=== PATIENT | female | born 1995 | race Caucasian/White ===

== ENCOUNTER 2017-09-03 13:09 | Emergency (ER) | payer MEDICAID ==
[~2017-09-03] VITALS: Ht 162.6 cm; Wt 51.2 kg
[~2017-09-03 13:09] MED LIST: CEPH500C5 PO; CLOT15CR5 VG; COM10T PO; IBUP-1573 PO; PHEN-873 PO
[2017-09-03 13:32] LABS: COLOR,URINE Yellow (Yellow); GLUCOSE, URINE Negative (Neg); KETONES,URINE 15 mg/dl (Neg); LEUKOCYTE ESTERASE ,URINE Large (Neg); NITRITES, URINE Positive (Neg); OCCULT BLOOD,URINE Negative (Neg); PH,URINE 5.5 (4.8-8.0); PROTEIN,URINE Negative (Neg); UROBILINOGEN,URINE 0.2 E.U/dL (0.2-1.0)
[2017-09-03 13:38] LABS: UA COLLECTION TYPE NON-SPECIFIED
[2017-09-03 13:39] LABS: CLARITY,URINE SLIGHTLY CLOUDY (Clear)
[2017-09-03 13:41] LABS: BACTERIA,URINE 4+ /HPF (Neg); RBC,URINE NONE SEEN /HPF (0-2); SQUAMOUS EPITHELIAL CELL,UR FEW /LPF (FEW); WBC CLUMPS,URINE MODERATE /HPF (NEGATIVE); WBC,URINE 50-100 /HPF (0-4)
[2017-09-03 13:48] LABS: URINE HCG POSITIVE (NEG)
[2017-09-03] MEDS ORDERED: CEPH500C5 PO (14:21)
[2017-09-03 15:05] VITALS: BP 110/62
== END 2017-09-03 15:07 | disposition home or self-care (01) ==
LOC: ER 13:10
DX: O23.41 Unspecified infection of urinary tract in pregnancy, first trimester (principal); Z3A.01 Less than 8 weeks gestation of pregnancy; Z91.040 Latex allergy status; Z88.1 Allergy status to other antibiotic agents
CPT/HCPCS: 36415; 81001; 81025; 87077; 87088; 87186; 87210; 87491; 99284

== ENCOUNTER 2017-10-22 11:48 | Emergency (ER) | payer MEDICAID ==
[~2017-10-22] VITALS: Ht 160 cm; Wt 52.8 kg
[2017-10-22 12:37] LABS: URINE HCG POSITIVE (NEG)
[2017-10-22 12:49] LABS: CLARITY,URINE CLEAR (Clear); COLOR,URINE YELLOW (Yellow); GLUCOSE, URINE NEGATIVE (Neg); KETONES,URINE 15 mg/dl (Neg); LEUKOCYTE ESTERASE ,URINE NEGATIVE (Neg); NITRITES, URINE NEGATIVE (Neg); OCCULT BLOOD,URINE NEGATIVE (Neg); PROTEIN,URINE NEGATIVE (Neg); UROBILINOGEN,URINE 0.2 E.U/dL (0.2-1.0)
[2017-10-22 13:00] LABS: UA COLLECTION TYPE CLN CATCH MIDSTREAM
[2017-10-22 13:08] LABS: BASOPHILS # (AUTO) 0.1 X10'3 (0-0.2); BASOPHILS % (AUTO) 0.6 % (0-1); EOSINOPHILS # (AUTO) 0.2 X10'3 (0-0.9); EOSINOPHILS % (AUTO) 1.3 % (0-6); HEMATOCRIT 40.5 % (35.0-45.0); HEMOGLOBIN 14.1 g/dl (12.0-16.0); LYMPHOCYTES # (AUTO) 2.1 X10'3 (1.1-4.8); LYMPHOCYTES % (AUTO) 18.1 % (21-51); MEAN CORPUSCULAR HEMOGLOBIN 30.8 PG (27.0-31.0); MEAN CORPUSCULAR HGB CONC 34.7 % (33.0-36.5); MEAN CORPUSCULAR VOLUME 88.6 FL (78-98); MEAN PLATELET VOLUME 7.4 FL (7.4-10.4); MONOCYTES # (AUTO) 0.5 X10'3 (0-0.9); PLATELET COUNT 286 X10'3 (140-440); RED BLOOD COUNT 4.58 X10'6 (4.20-5.60); RED CELL DISTRIBUTION WIDTH 13.5 % (11.5-14.5); WHITE BLOOD COUNT 11.9 X10'3 (4.5-11.0)
[2017-10-22 13:18] LABS: PROTHROMBIN TIME 10.3 SECONDS (9.0-12.0)
[2017-10-22 13:25] LABS: ALANINE AMINOTRANSFERASE 16 U/L (12-78); ALBUMIN 3.4 G/DL (3.4-5.0); ALBUMIN/GLOBULIN RATIO 0.9 (1.1-1.5); ALKALINE PHOSPHATASE 49 IU/L (46-116); ANION GAP 9 (8-16); ASPARTATE AMINO TRANSFERASE 11 U/L (10-37); BILIRUBIN,TOTAL 0.4 MG/DL (0.1-1.0); BLOOD UREA NITROGEN 6 MG/DL (7-18); CHLORIDE 103 MMOL/L (99-107); GLUCOSE 92 MG/DL (70-104); SODIUM 139 MMOL/L (135-145); TOTAL CARBON DIOXIDE 27.5 MMOL/L (24-32); TOTAL PROTEIN 7.3 G/DL (6.4-8.2); eGFR > 90 ML/MIN
[2017-10-22 15:26] VITALS: BP 139/80
== END 2017-10-22 15:26 | disposition home or self-care (01) ==
LOC: ER 11:49
DX: O99.511 Diseases of the respiratory system complicating pregnancy, first trimester (principal); J06.9 Acute upper respiratory infection, unspecified; Z3A.12 12 weeks gestation of pregnancy; Z88.0 Allergy status to penicillin; Z88.1 Allergy status to other antibiotic agents; Z91.040 Latex allergy status
CPT/HCPCS: 36415; 80053; 81003; 81025; 85025; 85610; 99284; 99285

== ENCOUNTER 2018-10-02 12:43 | Emergency (ER) | payer MEDICAID ==
[~2018-10-02] VITALS: Ht 157.5 cm; Wt 48.6 kg
[~2018-10-02 12:43] MED LIST changes: -CEPH500C5 PO; +PHEN-786 PO; -PHEN-873 PO
[2018-10-02 12:56] VITALS: BP 110/75
[2018-10-02 13:49] LABS: CLARITY,URINE CLEAR (Clear); COLOR,URINE YELLOW (Yellow); GLUCOSE, URINE NEGATIVE (Neg); KETONES,URINE NEGATIVE (Neg); LEUKOCYTE ESTERASE ,URINE NEGATIVE (Neg); NITRITES, URINE NEGATIVE (Neg); OCCULT BLOOD,URINE TRACE-INTACT (Neg); PH,URINE 6.5 (4.8-8.0); PROTEIN,URINE NEGATIVE (Neg); UROBILINOGEN,URINE 0.2 E.U/dL (0.2-1.0)
[2018-10-02 13:50] LABS: UA COLLECTION TYPE NON-SPECIFIED
[2018-10-02] MEDS ORDERED: IPRA30SP (13:55)
[2018-10-02 13:56] LABS: URINE HCG NEGATIVE (NEG)
[2018-10-02 13:57] LABS: MUCUS STRANDS MANY /LPF (Neg); SQUAMOUS EPITHELIAL CELL,UR FEW /LPF (FEW)
[2018-10-02 13:59] LABS: BACTERIA,URINE NONE SEEN /HPF (Neg); RBC,URINE 0-2 /HPF (0-2); WBC,URINE 0-4 /HPF (0-4)
== END 2018-10-02 14:14 | disposition home or self-care (01) ==
LOC: ER 12:44
DX: J32.9 Chronic sinusitis, unspecified (principal); Z88.0 Allergy status to penicillin; Z88.1 Allergy status to other antibiotic agents; Z79.899 Other long term (current) drug therapy; Z91.040 Latex allergy status
CPT/HCPCS: 81001; 81025; 99283

== ENCOUNTER 2018-11-03 09:29 | Emergency (ER) | payer MEDICAID ==
[~2018-11-03] VITALS: Ht 160 cm; Wt 49.1 kg
[~2018-11-03 09:29] MED LIST changes: +IPRA30SP
[2018-11-03 09:38] VITALS: BP 125/81
[2018-11-03 10:14] LABS: CLARITY,URINE CLEAR (Clear); COLOR,URINE YELLOW (Yellow); GLUCOSE, URINE NEGATIVE (Neg); KETONES,URINE NEGATIVE (Neg); LEUKOCYTE ESTERASE ,URINE NEGATIVE (Neg); NITRITES, URINE NEGATIVE (Neg); OCCULT BLOOD,URINE SMALL (Neg); PROTEIN,URINE NEGATIVE (Neg); UROBILINOGEN,URINE 0.2 E.U/dL (0.2-1.0)
[2018-11-03] MEDS ORDERED: ketorolac trometh inj. 60 MG/2 ML VIAL IM ONE (10:15)
[2018-11-03 10:17] LABS: UA COLLECTION TYPE CLN CATCH MIDSTREAM
[2018-11-03 10:23] LABS: SQUAMOUS EPITHELIAL CELL,UR MODERATE /LPF (FEW)
[2018-11-03 10:25] LABS: MUCUS STRANDS MODERATE /LPF (Neg)
[2018-11-03 10:32] LABS: RENAL CELLS, URINE FEW /HPF; TRANSITIONAL EPI CELLS,URINE FEW /HPF
[2018-11-03 10:37] LABS: URINE HCG NEGATIVE (NEG)
[2018-11-03 10:38] LABS: BASOPHILS % (AUTO) 0.9 % (0-1); EOSINOPHILS # (AUTO) 0.1 X10'3 (0-0.9); EOSINOPHILS % (AUTO) 1.5 % (0-6); HEMATOCRIT 39.8 % (35.0-45.0); HEMOGLOBIN 13.7 g/dl (12.0-16.0); LYMPHOCYTES # (AUTO) 1.9 X10'3 (1.1-4.8); LYMPHOCYTES % (AUTO) 35.8 % (21-51); MEAN CORPUSCULAR HEMOGLOBIN 30.8 PG (27.0-31.0); MEAN CORPUSCULAR HGB CONC 34.6 g/dL (33.0-36.5); MEAN PLATELET VOLUME 7.1 FL (7.4-10.4); MONOCYTES # (AUTO) 0.3 X10'3 (0-0.9); MONOCYTES % (AUTO) 6.5 % (2-12); NEUTROPHILS # (AUTO) 2.9 X10'3 (1.8-7.7); NEUTROPHILS % (AUTO) 55.3 % (42-75); PLATELET COUNT 283 X10'3 (140-440); RED BLOOD COUNT 4.47 X10'6 (4.20-5.60); RED CELL DISTRIBUTION WIDTH 13.6 % (11.5-14.5); WHITE BLOOD COUNT 5.2 X10'3 (4.5-11.0)
[2018-11-03 10:54] LABS: ALANINE AMINOTRANSFERASE 15 U/L (12-78); ALBUMIN 3.7 G/DL (3.4-5.0); ALKALINE PHOSPHATASE 96 IU/L (46-116); ANION GAP 9 (8-16); ASPARTATE AMINO TRANSFERASE 11 U/L (10-37); BILIRUBIN,TOTAL 0.3 MG/DL (0.1-1.0); BLOOD UREA NITROGEN 10 MG/DL (7-18); BUN/CREATININE RATIO 16.1 (6.6-38.0); CHLORIDE 108 MMOL/L (99-107); CREATININE 0.62 MG/DL (0.40-0.90); GLUCOSE 91 MG/DL (70-104); LIPASE 229 U/L (73-393); SODIUM 143 MMOL/L (135-145); TOTAL CARBON DIOXIDE 26.4 MMOL/L (24-32); TOTAL PROTEIN 7.3 G/DL (6.4-8.2); eGFR > 90 ML/MIN
[2018-11-03 11:45] LABS: BACTERIA,URINE FEW /HPF (Neg)
[2018-11-03] MEDS ORDERED: CEPH500C5 PO (12:53)
== END 2018-11-03 13:01 | disposition home or self-care (01) ==
LOC: ER 09:29
DX: N39.0 Urinary tract infection, site not specified (principal); N20.0 Calculus of kidney; Z88.0 Allergy status to penicillin; Z88.1 Allergy status to other antibiotic agents; Z91.040 Latex allergy status; Z79.899 Other long term (current) drug therapy
CPT/HCPCS: 36415; 74176; 80053; 81001; 81025; 83690; 85025; 87088; 96372; 99284; J1885

== ENCOUNTER 2018-12-21 07:56 | Emergency (ER) | payer MEDICAID ==
[~2018-12-21] VITALS: Ht 160 cm; Wt 47.7 kg
[~2018-12-21 07:56] MED LIST changes: +CEPH500C5 PO
[2018-12-21 08:00] VITALS: BP 110/79
[2018-12-21] MEDS ORDERED: CefTRIAXone 1000mg IM Kit (w/lidocaine diluent) IM ONE (08:25)
[2018-12-21] MEDS ORDERED: azithromycin 250mg tablet PO ONE (08:25)
[2018-12-21 08:56] LABS: CLARITY,URINE SLIGHTLY CLOUDY (Clear); COLOR,URINE YELLOW (Yellow); GLUCOSE, URINE NEGATIVE (Neg); KETONES,URINE NEGATIVE (Neg); LEUKOCYTE ESTERASE ,URINE TRACE (Neg); NITRITES, URINE NEGATIVE (Neg); OCCULT BLOOD,URINE SMALL (Neg); PH,URINE 5.5 (4.8-8.0); PROTEIN,URINE NEGATIVE (Neg); UA COLLECTION TYPE CLN CATCH MIDSTREAM; UROBILINOGEN,URINE 0.2 E.U/dL (0.2-1.0)
[2018-12-21 08:58] LABS: URINE HCG NEGATIVE (NEG)
[2018-12-21 09:06] LABS: MUCUS STRANDS MODERATE /LPF (Neg); SQUAMOUS EPITHELIAL CELL,UR MODERATE /LPF (FEW)
[2018-12-21 09:07] LABS: BACTERIA,URINE FEW /HPF (Neg)
[2018-12-21] MEDS ORDERED: NITR100C6 PO (09:15)
== END 2018-12-21 09:36 | disposition home or self-care (01) ==
LOC: ER 07:56
DX: N39.0 Urinary tract infection, site not specified (principal); Z88.0 Allergy status to penicillin; Z88.1 Allergy status to other antibiotic agents; Z91.040 Latex allergy status; Z79.2 Long term (current) use of antibiotics; Z79.899 Other long term (current) drug therapy
CPT/HCPCS: 36415; 81001; 81025; 87088; 87491; 87591; 96372; 99283; J0696

== ENCOUNTER 2019-04-12 09:07 | Emergency (ER) | payer MEDICAID ==
[~2019-04-12] VITALS: Ht 160 cm; Wt 48.6 kg
[~2019-04-12 09:07] MED LIST changes: +NITR100C6 PO
--- NOTE | 2019-04-12 09:38 | NUR ---
PATIETN C/O EAR PAIN, DRY COUGH, NASAL DRAINAGE GREEN
--- NOTE | 2019-04-12 09:44 | NUR ---
LUNGS CLEAR, NO WHEEZE
[2019-04-12 09:45] VITALS: BP 110/71
[2019-04-12] MEDS ORDERED: AZIT250T PO (09:45)
== END 2019-04-12 10:02 | disposition home or self-care (01) ==
LOC: ER 09:07
DX: J32.9 Chronic sinusitis, unspecified (principal); J02.9 Acute pharyngitis, unspecified; H92.01 Otalgia, right ear; Z88.0 Allergy status to penicillin; Z88.1 Allergy status to other antibiotic agents; Z91.040 Latex allergy status; Z79.899 Other long term (current) drug therapy
CPT/HCPCS: 99283

== ENCOUNTER 2020-01-22 07:05 | Emergency (ER) | payer MEDICAID ==
[~2020-01-22] VITALS: Ht 160 cm; Wt 52.0 kg
[~2020-01-22 07:05] MED LIST changes: +AZIT250T PO; -CEPH500C5 PO
[2020-01-22 07:07] VITALS: BP 122/88
[2020-01-22] MEDS ORDERED: CefTRIAXone 250MG inj IM ONE (07:25)
[2020-01-22] MEDS ORDERED: azithromycin 250mg tablet PO ONE (07:25)
[2020-01-22] MEDS ORDERED: phenazopyridine 100mg tablet PO ONE (07:25)
[2020-01-22] MEDS ORDERED: ondansetron 4mg rapidly disintigrating tab PO ONE (07:25)
[2020-01-22] MEDS ORDERED: CefTRIAXone 250MG IM Kit w/LIDOcaine IM ONE (07:30)
[2020-01-22 08:14] LABS: URINE HCG NEGATIVE (NEG)
[2020-01-22 08:20] LABS: CLARITY,URINE CLOUDY (Clear); COLOR,URINE YELLOW (Yellow); GLUCOSE, URINE NEGATIVE (Neg); KETONES,URINE NEGATIVE (Neg); LEUKOCYTE ESTERASE ,URINE MODERATE (Neg); NITRITES, URINE NEGATIVE (Neg); OCCULT BLOOD,URINE LARGE (Neg); PROTEIN,URINE 100 mg/dl (Neg)
[2020-01-22 08:32] LABS: UA COLLECTION TYPE VOIDED
[2020-01-22 08:33] LABS: BACTERIA,URINE 3+ /HPF (Neg); SQUAMOUS EPITHELIAL CELL,UR MANY /LPF (FEW); WBC,URINE TNTC /HPF (0-4)
[2020-01-22 08:34] LABS: TRANSITIONAL EPI CELLS,URINE FEW /HPF
[2020-01-22 08:35] LABS: MUCUS STRANDS FEW /LPF (Neg)
[2020-01-22] MEDS ORDERED: PHEN-786 PO (08:40)
[2020-01-22] MEDS ORDERED: BACDS PO (08:40)
== END 2020-01-22 08:54 | disposition home or self-care (01) ==
LOC: ER 07:05
DX: N39.0 Urinary tract infection, site not specified (principal); Z91.040 Latex allergy status; Z88.0 Allergy status to penicillin; Z88.8 Allergy status to other drugs, medicaments and biological substances; Z79.899 Other long term (current) drug therapy
CPT/HCPCS: 36415; 81001; 81025; 87491; 99284

== ENCOUNTER 2022-01-16 11:36 | Emergency (ER) | payer MEDICAID ==
[~2022-01-16] VITALS: Ht 160 cm; Wt 48.6 kg
[~2022-01-16 11:36] MED LIST changes: +CLOT15CR35 VG; -CLOT15CR5 VG
[2022-01-16 12:16] VITALS: BP 105/71
[2022-01-16 13:37] LABS: CLARITY,URINE SLIGHTLY CLOUDY (Clear); COLOR,URINE YELLOW (Yellow); GLUCOSE, URINE NEGATIVE (Neg); KETONES,URINE NEGATIVE (Neg); LEUKOCYTE ESTERASE ,URINE NEGATIVE (Neg); NITRITES, URINE POSITIVE (Neg); OCCULT BLOOD,URINE NEGATIVE (Neg); PROTEIN,URINE NEGATIVE (Neg); UROBILINOGEN,URINE 0.2 E.U/dL (0.2-1.0)
[2022-01-16 13:43] LABS: UA COLLECTION TYPE CLN CATCH MIDSTREAM
[2022-01-16] MEDS ORDERED: CEPH-585 PO (13:43)
[2022-01-16] MEDS ORDERED: FLUC200T8 PO (13:43)
[2022-01-16 13:44] LABS: BACTERIA,URINE 4+ /HPF (Neg); MUCUS STRANDS FEW /LPF (Neg); RBC,URINE 0-2 /HPF (0-2); SQUAMOUS EPITHELIAL CELL,UR NONE SEEN /LPF (FEW)
== END 2022-01-16 13:53 | disposition home or self-care (01) ==
LOC: ER 11:49
DX: N39.0 Urinary tract infection, site not specified (principal); Z91.040 Latex allergy status; Z88.0 Allergy status to penicillin; Z88.1 Allergy status to other antibiotic agents; Z79.899 Other long term (current) drug therapy
CPT/HCPCS: 81001; 87077; 87088; 87186; 99283

== ENCOUNTER 2022-11-16 11:46 | Emergency (ER) | payer MEDICAID ==
[~2022-11-16] VITALS: Ht 160 cm; Wt 54.1 kg
[~2022-11-16 11:46] MED LIST changes: +CEPH-585 PO
[2022-11-16 14:14] LABS: BASOPHILS % (AUTO) 0.4 % (0-1); EOSINOPHILS # (AUTO) 0.1 X10'3 (0-0.9); EOSINOPHILS % (AUTO) 1.6 % (0-6); HEMATOCRIT 39.1 % (35.0-45.0); HEMOGLOBIN 13.1 g/dl (12.0-16.0); LYMPHOCYTES # (AUTO) 2.1 X10'3 (1.1-4.8); LYMPHOCYTES % (AUTO) 23.6 % (21-51); MEAN CORPUSCULAR HEMOGLOBIN 30.8 PG (27.0-31.0); MEAN CORPUSCULAR HGB CONC 33.4 g/dL (33.0-36.5); MEAN CORPUSCULAR VOLUME 92.1 FL (78-98); MEAN PLATELET VOLUME 7.3 FL (7.4-10.4); MONOCYTES # (AUTO) 0.7 X10'3 (0-0.9); NEUTROPHILS # (AUTO) 5.9 X10'3 (1.8-7.7); NEUTROPHILS % (AUTO) 66.4 % (42-75); PLATELET COUNT 309 X10'3 (140-440); RED BLOOD COUNT 4.25 X10'6 (4.20-5.60); RED CELL DISTRIBUTION WIDTH 13.4 % (11.5-14.5); WHITE BLOOD COUNT 8.9 X10'3 (4.5-11.0)
[2022-11-16 14:17] VITALS: BP 114/68
[2022-11-16 14:48] LABS: ALANINE AMINOTRANSFERASE 12 U/L (12-78); ALBUMIN 3.6 G/DL (3.4-5.0); ALKALINE PHOSPHATASE 54 IU/L (46-116); ANION GAP 6 (8-16); ASPARTATE AMINO TRANSFERASE 14 U/L (10-37); BILIRUBIN,TOTAL 0.3 MG/DL (0.1-1.0); BLOOD UREA NITROGEN 8 MG/DL (7-18); CALCIUM 8.4 MG/DL (8.5-10.1); CHLORIDE 106 MMOL/L (99-107); CREATININE 0.47 MG/DL (0.40-0.90); GLUCOSE 85 MG/DL (70-104); POTASSIUM 3.7 MMOL/L (3.5-5.1); SODIUM 136 MMOL/L (135-145); TOTAL CARBON DIOXIDE 23.7 MMOL/L (24-32); TOTAL PROTEIN 7.1 G/DL (6.4-8.2); eGFR > 90 ML/MIN
[2022-11-16 14:50] LABS: CLARITY,URINE SLIGHTLY CLOUDY (Clear); COLOR,URINE YELLOW (Yellow); GLUCOSE, URINE NEGATIVE (Neg); KETONES,URINE NEGATIVE (Neg); LEUKOCYTE ESTERASE ,URINE NEGATIVE (Neg); NITRITES, URINE NEGATIVE (Neg); OCCULT BLOOD,URINE NEGATIVE (Neg); PROTEIN,URINE NEGATIVE (Neg); UROBILINOGEN,URINE 0.2 E.U/dL (0.2-1.0)
[2022-11-16 14:51] LABS: UA COLLECTION TYPE CLN CATCH MIDSTREAM
[2022-11-16 15:00] LABS: SQUAMOUS EPITHELIAL CELL,UR MANY /LPF (FEW)
[2022-11-16 15:01] LABS: BACTERIA,URINE 1+ /HPF (Neg); RBC,URINE 0-2 /HPF (0-2)
--- NOTE | 2022-11-16 15:03 | NUR ---
mS CHAUHAN NOTIFIED THAT PT URINE WAS REJECTED BY THE LAB.
[2022-11-16 15:08] LABS: URINE HCG POSITIVE (NEG)
[2022-11-16 15:15] LABS: BETA HCG,QUANTITATIVE 5722 mIU/ml
== END 2022-11-16 15:59 | disposition home or self-care (01) ==
LOC: ER 11:47
DX: O20.0 Threatened abortion (principal); Z3A.08 8 weeks gestation of pregnancy; Z91.040 Latex allergy status; Z88.0 Allergy status to penicillin; Z88.1 Allergy status to other antibiotic agents; Z79.899 Other long term (current) drug therapy; Z79.1 Long term (current) use of non-steroidal anti-inflammatories (NSAID); Z79.2 Long term (current) use of antibiotics; Z87.448 Personal history of other diseases of urinary system
CPT/HCPCS: 36415; 76801; 80053; 81001; 81025; 84702; 85025; 99284

== ENCOUNTER 2022-12-10 19:33 | Emergency (ER) | payer MEDICAID ==
[~2022-12-10] VITALS: Ht 160 cm; Wt 52.8 kg
[2022-12-10 19:38] VITALS: BP 138/84
[2022-12-10 19:58] LABS: BASOPHILS # (AUTO) 0.1 X10'3 (0-0.2); BASOPHILS % (AUTO) 0.8 % (0-1); EOSINOPHILS # (AUTO) 0.2 X10'3 (0-0.9); EOSINOPHILS % (AUTO) 1.6 % (0-6); HEMATOCRIT 37.5 % (35.0-45.0); HEMOGLOBIN 12.6 g/dl (12.0-16.0); LYMPHOCYTES # (AUTO) 2.6 X10'3 (1.1-4.8); LYMPHOCYTES % (AUTO) 21.1 % (21-51); MEAN CORPUSCULAR HEMOGLOBIN 30.6 PG (27.0-31.0); MEAN CORPUSCULAR HGB CONC 33.6 g/dL (33.0-36.5); MEAN CORPUSCULAR VOLUME 91.1 FL (78-98); MEAN PLATELET VOLUME 7.4 FL (7.4-10.4); MONOCYTES # (AUTO) 0.8 X10'3 (0-0.9); MONOCYTES % (AUTO) 6.7 % (2-12); NEUTROPHILS # (AUTO) 8.6 X10'3 (1.8-7.7); NEUTROPHILS % (AUTO) 69.8 % (42-75); PLATELET COUNT 339 X10'3 (140-440); RED BLOOD COUNT 4.11 X10'6 (4.20-5.60); RED CELL DISTRIBUTION WIDTH 13.2 % (11.5-14.5); WHITE BLOOD COUNT 12.3 X10'3 (4.5-11.0)
--- NOTE | 2022-12-10 20:00 | NUR ---
Pt in FTB. Pt is aprox 9 weeks . Pt is c/o cramping. Pt is c/o N/V. Pt educated to POC. Pt in agreement. Pending providers eval and treatment.
[2022-12-10 20:02] LABS: URINE HCG POSITIVE (NEG)
[2022-12-10 20:11] LABS: CLARITY,URINE CLEAR (Clear); COLOR,URINE YELLOW (Yellow); GLUCOSE, URINE NEGATIVE (Neg); KETONES,URINE NEGATIVE (Neg); LEUKOCYTE ESTERASE ,URINE NEGATIVE (Neg); NITRITES, URINE NEGATIVE (Neg); OCCULT BLOOD,URINE TRACE-INTACT (Neg); PROTEIN,URINE NEGATIVE (Neg)
[2022-12-10 20:12] LABS: UA COLLECTION TYPE CLN CATCH MIDSTREAM
[2022-12-10 20:13] LABS: ALANINE AMINOTRANSFERASE 9 U/L (12-78); ALBUMIN 3.4 G/DL (3.4-5.0); ALBUMIN/GLOBULIN RATIO 0.9 (1.1-1.5); ALKALINE PHOSPHATASE 57 IU/L (46-116); ANION GAP 10 (8-16); ASPARTATE AMINO TRANSFERASE 11 U/L (10-37); BILIRUBIN,TOTAL 0.2 MG/DL (0.1-1.0); BLOOD UREA NITROGEN 10 MG/DL (7-18); BUN/CREATININE RATIO 18.2 (10.0-20.0); CALCIUM 8.8 MG/DL (8.5-10.1); CHLORIDE 102 MMOL/L (99-107); CREATININE 0.55 MG/DL (0.40-0.90); GLUCOSE 89 MG/DL (70-104); LIPASE 143 U/L (73-393); POTASSIUM 3.5 MMOL/L (3.5-5.1); SODIUM 137 MMOL/L (135-145); TOTAL PROTEIN 7.3 G/DL (6.4-8.2); eGFR > 90 ML/MIN
[2022-12-10 20:22] LABS: BACTERIA,URINE NONE SEEN /HPF (Neg); MUCUS STRANDS NONE SEEN /LPF (Neg); RBC,URINE 0-2 /HPF (0-2); SQUAMOUS EPITHELIAL CELL,UR FEW /LPF (FEW); WBC,URINE 0-4 /HPF (0-4)
--- NOTE | 2022-12-10 21:03 | NUR ---
ultrasound paged at [phone]
[2022-12-10] MEDS ORDERED: PYRI25TA4 PO (21:39)
[2022-12-10] MEDS ORDERED: pyridoxine 50mg tablet PO SCH (21:45)
[2022-12-10 21:56] LABS: BETA HCG,QUANTITATIVE 177088 mIU/ml
== END 2022-12-10 21:56 | disposition home or self-care (01) ==
LOC: ER 19:34
DX: O26.891 Other specified pregnancy related conditions, first trimester (principal); O46.90 Antepartum hemorrhage, unspecified, unspecified trimester; Z88.0 Allergy status to penicillin; Z88.1 Allergy status to other antibiotic agents; Z79.899 Other long term (current) drug therapy; Z79.1 Long term (current) use of non-steroidal anti-inflammatories (NSAID); Z79.2 Long term (current) use of antibiotics
CPT/HCPCS: 36415; 76801; 80053; 81001; 81025; 83690; 84702; 85025; 99284

== ENCOUNTER 2025-03-06 12:36 | Emergency (ER) | payer MEDICAID ==
[~2025-03-06] VITALS: Ht 160 cm; Wt 54.4 kg
[~2025-03-06 12:36] MED LIST changes: +AZIT500T9 PO; -CEPH-585 PO; +PYRI25TA4 PO
[2025-03-06 12:37] VITALS: BP 135/84; PULSE 78; RESP 18; TEMP 98.4; O2SAT 98
--- NOTE | 2025-03-06 14:38 | Physician Documentation ---
History of Present Illness ~ Chief Complaint: Ear Pain Stated Complaint: EAR PAIN Time Seen by MD: 13:09 Primary Medical Doctor: newton HPI Patient is a 29-year-old female that presents to the ED department today for left-sided ear and dental pain. Patient states that she is unable to distinguish between ear pain or dental pain on the left side. Patient reports that she just completed a course of azithromycin for a sinus infection. She reports that the dental/ear pain started approximately 3-4 days ago and has consistently progressed to a point being very uncomfortable. Patient reports that she has had low-grade fevers. She reports that she has had not had a fever in the last 24 hours however. Patient also reports that she has a an appointment with her dentist tomorrow to be evaluated for a possible dental abscess in the left lower jaw. Medication Reconciliation Allergies: Coded Allergies: latex (Verified Allergy, Intermediate, skin irritation, 03/06/25) Penicillins (Verified Allergy, Mild, rash, 03/06/25) amoxicillin (Verified Allergy, Unknown, 03/06/25) Uncoded Allergies: MUSHROOMS (Allergy, Unknown, 06/27/14) Scheduled Azithromycin (Zithromax), 1 DOSPAK PO UD Azithromycin (Azithromycin), 1 TAB PO DAILY Clindamycin HCl (Clindamycin HCl CAPSULE), 1 CAP PO QID Clotrimazole (Clotrimazole), 1 APPLIC VG DAILY Ipratropium [place] Nasal [place]* (Atrovent Nasal [place]*), 2 SPRAY NA QID Nitrofurantoin Monohyd/M-Cryst (Macrobid 100 mg Capsule), 1 CAP PO Q12H Prochlorperazine Maleate* (Compazine*), 10 MG PO Q6H Pyridoxine HCl (Pyridoxine HCl), 1 TAB PO Q6H Scheduled PRN Ibuprofen (Ibuprofen), 600 MG PO Q6H PRN for pain Phenazopyridine Hcl (Pyridium tablet), 1 TAB PO Q8H PRN for abdominal cramps Phenazopyridine Hcl (Pyridium tablet), 2 TAB PO Q8H PRN for pain Past Medical History Past Medical History: UTI Past Surgical History: no surgical history Alcohol Use: None Drug Use: none Lives with: Family Lives In: Home Occupation: employed Physical Exam Vital Signs: Temperature: 98.4, Source: Temporal, Heart Rate: 78, Respiratory Rate: 18, BP: 135/84, Pulse Oximetry: 98, Weight: 54.400 Oxygen Flow Rate: 0 Physical Exam VITALS: Reviewed and as above. GENERAL: Alert, no apparent distress. HEENT: Normocephalic, atraumatic, PERRL, EOMI, dry mucosa, no erythema, mild bulging of left TM noted. RESPIRATORY: Lungs clear, normal breath sounds, no respiratory distress. CHEST: No accessory muscle use, no retractions CV: Regular rate, rhythm, no edema, no murmur, No: JVD GI: Soft, non-tender, bowels sounds present, no rebound, guarding, or rigidity BACK: No CVA tenderness, or swelling MUSCULOSKELETAL No deformities, no edema SKIN: Warm and dry, no rash NEURO: Oriented x4, No motor or sensory deficit PSYCH: Normal mood and affect, no agitation Progress Results/Orders Results/Orders Vital Signs 03/06/25 12:37 Temp 98.4 Pulse 78 Resp 18 B/P (MAP) 135/84 Pulse Ox 98 O2 Flow Rate 0 Medical Decision Making Findings Patient presents for dental pain due to suspected dental katrin. Patient not immunosuppressed, and well appearing with patent airway, have low suspicfion for deep space infection or any concern for airway compromise. Based on history, physical, and work up. No evidence of tooth fracture, avulsion, or bleeding socket. No evidence of RPA, SUPERVISOR FELLING BUCKING, Ludwigs angina, periapical abscess. Instructed patient to continue to treat pain with ibuprofen/acetaminophen until they see a dentist. Defer ABX for dental pain alone with no overt evidence of dental infection but moderate suspicion for left sided otitis media. Patient discharged home and will follow up with dentist. Discussed return precautions for odontogenic infections and other dental pain emergencies. Patient has an appointment with dentist tomorrow. Exam and history most consistent with AOM. I have a low suspicion at this time for mastoiditis, malignant otitis externa, herpes or tena cox syndrome, or retained foreign body. Will give wait and see prescription for amoxicillin. If symptoms worsen or persist for 48-72 then pt to fill the prescription, Cautious return precautions discussed w/ full understanding. Discussed with the patient the concern for Parotitis due to the pre-auricular pain that she is experiencing. Discussed this case with a colleage and Dr. Pineda and have decided to cover the patient with Clindamycin, and have her follow up with her dentist and her PCP if ther are any additional concerns or symptoms. Departure Disposition: 01 HOME / SELF CARE / HOMELESS Impression: Primary Impression: Otitis media Discharge Instructions: Earache, Adult Additional Instructions: Today we saw you for concerned for a left-sided ear pain and possible unresolved sinus infection. The pain that you describe to us today is preauricular and intra canal of the left ear. There was mild concerned for dental abscess. We have discussed the plan today for you to follow up with your dentist and follow up with the your PCP. In the interim we are going to send you home on clindamycin 300 mg t.i.d. please take this medication as described. Referrals: NO PRIMARY CARE PROVIDER (PCP) Prescriptions Clindamycin HCl (Clindamycin HCl CAPSULE) 150 Mg Capsule 1 CAP PO QID, #40 CAP Prov: TC VERGARA 03/06/25 Education Educated: Patient Educated regarding: diagnosis, need for follow up Additional Comment Patient is going to follow up with dentist and PCP. Signature Scribe Signature: . Attestation: . TC VERGARA Mar 06, 2025 14:38 CAMI PINEDA MD Mar 07, 2025 06:30
[2025-03-06] MEDS ORDERED: CLIN-214 PO (14:48)
== END 2025-03-06 15:01 | disposition home or self-care (01) ==
LOC: ER 12:36
DX: H66.92 Otitis media, unspecified, left ear (principal); Z88.0 Allergy status to penicillin; Z88.1 Allergy status to other antibiotic agents; Z91.040 Latex allergy status
CPT/HCPCS: 99283

== ENCOUNTER 2025-03-27 08:55 | Emergency (ER) | payer MEDICAID ==
[~2025-03-27] VITALS: Ht 160 cm; Wt 54.5 kg
[~2025-03-27 08:55] MED LIST changes: +CLIN-214 PO
[2025-03-27 08:57] VITALS: BP 109/72; PULSE 87; RESP 14; O2SAT 100
[2025-03-27 09:25] LABS: LEUKOCYTE ESTERASE ,URINE MODERATE (Neg); NITRITES, URINE NEGATIVE (Neg); OCCULT BLOOD,URINE MODERATE (Neg)
[2025-03-27 09:29] LABS: URINE HCG NEGATIVE (NEG)
[2025-03-27 09:35] LABS: UA COLLECTION TYPE CLN CATCH MIDSTREAM
[2025-03-27 09:38] LABS: SQUAMOUS EPITHELIAL CELL,UR MODERATE /LPF (FEW)
--- NOTE | 2025-03-27 10:40 | Physician Documentation ---
History of Present Illness ~ Chief Complaint: Urinary Symptoms Stated Complaint: URINARY COMPLICATIONS Time Seen by MD: 10:11 Primary Medical Doctor: [facility] HPI The year old female that presents emergency department for evaluation hematuria and possible UTI. Patient reports that she does have a history of kidney stones he does not like this is consistent with a previous kidney stone she has had and expresses that her dysuria has been fairly persistent. Like to undergo STD testing today while she is here.. Medication Reconciliation Allergies: Coded Allergies: latex (Verified Allergy, Intermediate, skin irritation, 03/27/25) Penicillins (Verified Allergy, Mild, rash, 03/27/25) amoxicillin (Verified Allergy, Unknown, 03/06/25) Uncoded Allergies: MUSHROOMS (Allergy, Unknown, 06/27/14) Scheduled Azithromycin (Zithromax), 1 DOSPAK PO UD Azithromycin (Azithromycin), 1 TAB PO DAILY Clindamycin HCl (Clindamycin HCl CAPSULE), 1 CAP PO QID Clotrimazole (Clotrimazole), 1 APPLIC VG DAILY Ipratropium [place] Nasal [place]* (Atrovent Nasal [place]*), 2 SPRAY NA QID Nitrofurantoin Monohyd/M-Cryst (Macrobid 100 mg Capsule), 1 CAP PO Q12H Prochlorperazine Maleate* (Compazine*), 10 MG PO Q6H Pyridoxine HCl (Pyridoxine HCl), 1 TAB PO Q6H Scheduled PRN Ibuprofen (Ibuprofen), 600 MG PO Q6H PRN for pain Phenazopyridine Hcl (Pyridium tablet), 1 TAB PO Q8H PRN for abdominal cramps Phenazopyridine Hcl (Pyridium tablet), 2 TAB PO Q8H PRN for pain Past Medical History Past Medical History: UTI Past Surgical History: no surgical history Alcohol Use: None Drug Use: none Lives with: Family Lives In: Home Occupation: employed Review of Systems ROS As stated above in the HPI, otherwise all systems are reviewed and negative. Physical Exam Vital Signs: Temperature: 97.1, Source: Temporal, Heart Rate: 87, Respiratory Rate: 14, BP: 109/72, Pulse Oximetry: 100, Weight: 54.500 Oxygen Flow Rate: 0 Physical Exam VITALS: Reviewed and as above. GENERAL: Alert, no apparent distress. HEENT: Normocephalic, atraumatic, PERRL, EOMI, dry mucosa, no erythema RESPIRATORY: Lungs clear, normal breath sounds, no respiratory distress. CHEST: No accessory muscle use, no retractions CV: Regular rate, rhythm, no edema, no murmur, No: JVD GI: Soft, non-tender, bowels sounds present, no rebound, guarding, or rigidity BACK: No CVA tenderness, or swelling MUSCULOSKELETAL No deformities, no edema SKIN: Warm and dry, no rash NEURO: Oriented x4, No motor or sensory deficit PSYCH: Normal mood and affect, no agitation Progress Results/Orders Results/Orders Orders - ROBYN VERGARA GENETIC SUPERVISOR Chlam/Gc Amp Ur (03/27/25 10:25) Vital Signs 03/27/25 08:57 Temp 97.1 Pulse 87 Resp 14 B/P (MAP) 109/72 Pulse Ox 100 O2 Flow Rate 0 Laboratory Tests Test 03/27/25 09:00 Urine Specimen Description Cln catch midstream Urine Color Yellow Urine Clarity Cloudy Urine pH 6.0 Urine Specific [place] 1.025 Urine Protein Trace Urine Glucose (UA) Negative Urine Ketones Negative Urine Occult Blood Moderate H Urine Nitrite Negative Urine Bilirubin Negative Urine Urobilinogen 0.2 Urine Leukocyte Esterase Moderate H Urine RBC 50-100 Urine WBC Tntc H Urine Squamous Epithelial Cells Moderate Urine Transitional Epithelial Cells Moderate Urine Bacteria 3+ Urine Culture Indicated Indicated Volume Urine Centrifuged 10 ml Urine HCG, Qualitative Negative Urine Comment Medical Decision Making Findings Patient presenting with flank/back pain and fever. Differential included UTI, pyelonephritis, diverticulitis, nephrolithiasis, appendicitis, cholangitis_. Also considered but less likely given history and physical exam included constipation, bowel perforation, gastritis, pancreatitis, mesenteric ischemia, genital torsion_. Patient febrile and given tylenol and normal saline bolus_. Given ceftriaxone and prescribed cefdinir Follow up with PMD this week. Return precautions given. Urinary Diff Dx:Considerations: Include: AAA, , Aortic dissection, Appendicitis, Bowel obstruction, Cholelithiasis, Choleangitis, DJD, Ectopic , Hepatitis, HNP, Impaction, Intrauterine , Musculoskeletal pain, Ovarian torsion, Pancreatitis, PID, Post-Op complication, Pyelonephritis, Renal failure, Strain, Urinary Obstruction, Urolithiasis, Urinary retention, UTI, Vaginitis, Other Genital Diff Dx:Considerations: Include: -Complete, - Incomplete, -Inevitable, Ablortion-Missed, -Threatened, Abruptio placentae, Bartholin abscess, Bartholin cyst, Blood loss anemia, Constipation, Cervicitis, Dsymenorrhea, Ectopic , Foreign body, Hormonal, Hidradenitis suppurativa, Intrauterine , Menorrhagia, Menometrorrhagia, Menstrual bleeding, Myomatous uterus, Perianal abscess, Physiologic discharge, Pinworms, PID, Placenta previa, , Precipitous Hct, Trauma, UTI, Vaginitis(osis)-Atrophic, Vaginitis, Vaginitis(osis)-Bacterial, Vaginitis(osis)- Candidal, Vaginitis(osis)-Contact, Vaginitis(osis)-Herpes, Vaginitis(osis)- Trich., Other Departure Disposition: HOME / SELF CARE / HOMELESS Impression: Primary Impression: Abdominal pain Additional Impressions: UTI (urinary tract infection) Acute pyelonephritis Condition: Stable Discharge Instructions: Urinary Tract Infection, Adult, Pyelonephritis, Adult Additional Instructions: You were seen and evaluated for UTI possible pyelonephritis. Given an IM injection of antibiotics here and prescribed an antibiotic to complete while at home. Please take this antibiotic until it is finished please follow-up with your primary care provider please make an appointment to see the automatic oven operator for concerns of endometriosis that we discussed here today. Preoperative you have worsening recurrent symptoms fevers flank pain additional blood in your urine that is not resolved in the next 48 hours so concerns. Referrals: NO PRIMARY CARE PROVIDER (PCP) Prescriptions Cefdinir* (Cefdinir*) 300 Mg Capsule 1 CAP PO Q12H for 10 Days, #20 CAP Prov: ROBYN VERGARA 03/27/25 Education Educated: Patient Educated regarding: treatment, need for follow up Signature Scribe Signature: . Attestation: Scribed for Robyn Vergara by CYDNEY Calvo . 03/27/25 10:44 ROBYN VERGARA Mar 27, 2025 10:40
[2025-03-27] MEDS ORDERED: CEFD300C3 PO (10:41)
[2025-03-27] MEDS: CefTRIAXone 1000mg IM Kit (w/lidocaine diluent) IM ONE (10:57)
[2025-03-27 11:00] VITALS: TEMP 97.1
== END 2025-03-27 11:02 | disposition home or self-care (01) ==
LOC: ER 08:55
DX: N10 Acute pyelonephritis (principal); N39.0 Urinary tract infection, site not specified; Z88.0 Allergy status to penicillin; Z88.8 Allergy status to other drugs, medicaments and biological substances
CPT/HCPCS: 36415; 81001; 81025; 87088; 87491; 87591; 96372; 99283; J0696; 87077; 87186